=== PATIENT | female | born 1990 | race Caucasian/White ===

== ENCOUNTER 2022-12-16 07:08 | Day surgery (SDC) | payer OTHER ==
[~2022-12-16] VITALS: Ht 170.2 cm; Wt 130.4 kg
[~2022-12-16 07:08] MED LIST: ACET500 PO; ANTOXYBENA BOTHEARS; AZIT500 PO; CEPH250A PO; CEPH500 PO; FAMO20 PO; HYDACE5 PO; KETO10 PO; MULVITMINE PO; PENVK500 PO; PRENATAL TABLE1 EAC2 PO; Ultram50 MG PO; Vitamin C100 M1 PO
--- NOTE | 2022-12-16 09:41 | NUR ---
12/16/22 0941 Madalyn Velez NO ABO ORDERED
--- NOTE | 2022-12-16 09:55 | NUR ---
LATE ENTRY: 0800:Ambulatory in Day Surgery History, Chart, Medications and Allergies reviewed before start of procedure.Pre-Op teaching done. Pt verbalizes understanding. Patient States Post-Procedure ride home has been arranged.
--- NOTE | 2022-12-16 11:35 | NUR ---
Discharge instructions reviewed with patient. Patient verbalizes understanding. Copy given to patient to take home. Discharged via wheelchair to private car for ride home. Patient up to Ambulate independently. Gait steady. ABLE TO VOID AFTER USING BR
== END 2022-12-16 22:34 | disposition home or self-care (01) ==
LOC: ORSCMMR 07:08 → ORSCSDS 07:30 → ORD 08:45 → ORSCMMR 08:45
PROVIDERS: Obstetrics & Gynecology
PROC: 0UT74ZZ Resection of Bilateral Fallopian Tubes, Percutaneous Endoscopic Approach (ICD-10-PCS; principal; 2022-12-16 08:45)
DX: Z30.2 Encounter for sterilization (principal); Z87.891 Personal history of nicotine dependence
CPT/HCPCS: 88302; A9270; J1100; J1885; J2405; J2704; J2795; J3010; J7120

== ENCOUNTER 2025-09-15 11:38 | Day surgery (SDC) | payer OTHER ==
[~2025-09-15] VITALS: Ht 172.7 cm; Wt 127.7 kg
[~2025-09-15 11:38] MED LIST changes: +MULTIA DAILY M1 EACH PO
[2025-09-15] MEDS ORDERED: IRON18 M1 (12:07)
[2025-09-15] MEDS ORDERED: MULTI-VITAMIN1 EAC2 (12:07)
[2025-09-15] MEDS ORDERED: ZINC15 (12:07)
[2025-09-15] MEDS ORDERED: FentaNYL Citrate 50 MCG/ML 2 ML Injection ONE (12:41)
[2025-09-15] MEDS ORDERED: Midazolam HCl 1MG / ML 2ML Vial ONE (12:41)
[2025-09-15] MEDS ORDERED: Dexamethasone Sod Phos 10 MG/ML 1ML VIAL ONE (12:43)
[2025-09-15] MEDS ORDERED: Ondansetron HCl 2 MG / ML 2ML Vial ONE (12:43)
[2025-09-15] MEDS ORDERED: Sugammadex Sodium 200 MG/2ML SDV (100 MG/ML) ONE (13:38)
[2025-09-15] MEDS ORDERED: Ketorolac Tromethamine 30mg Vial ONE (13:40)
[2025-09-15] MEDS ORDERED: OxyCODONE 5 mg/Acetamin 325 mg TABLET ONE (14:32)
[2025-09-15 15:01] VITALS: BP 113/62
--- NOTE | 2025-09-15 15:22 | NUR ---
09/15/25 1522 Cheryl Novoa MYOSURE NORMAL SALINE FLUID DEFICIT OF LESS THAN 200ML. DR GIL NOTIFIED.
== END 2025-09-15 15:02 | disposition home or self-care (01) ==
LOC: ORSCSDS 11:38
DX: N92.0 Excessive and frequent menstruation with regular cycle (principal); N84.0 Polyp of corpus uteri; R10.22 Pelvic and perineal pain left side; E66.01 Morbid (severe) obesity due to excess calories; Z68.41 Body mass index [BMI] 40.0-44.9, adult; Z87.891 Personal history of nicotine dependence
CPT/HCPCS: 88305; A9270; J1100; J1885; J2250; J2405; J2704; J3010; J7120